=== PATIENT | female | born 1985 | race Caucasian/White ===

== ENCOUNTER 2017-05-15 20:00 | Emergency (ER) | payer OTHER ==
[2017-05-15 20:07] VITALS: BP 138/74; PULSE 84; TEMP 97.8; BMI 27.4
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
[2017-05-15] MEDS ORDERED: ACETAMINOPHEN 325 MG TABLET (FP) PO ONE (21:04)
[2017-05-15] MEDS ORDERED: ALBUTEROL SO4 2.5/IPRATROPIUM 0.5 INH SOL 3 ML VIAL.NEB. NEB ONE ×2 (21:04→21:44)
[2017-05-15 21:19] LABS: URINE APPEARANCE CLEAR; URINE BILIRUBIN 1+ (NEGATIVE); URINE BLOOD NEGATIVE (NEGATIVE); URINE COLOR YELLOW; URINE GLUCOSE (UA) NEGATIVE (NEGATIVE); URINE KETONE 1+ (NEGATIVE); URINE LEUK ESTERASE NEGATIVE (NEGATIVE); URINE NITRITE NEGATIVE (NEGATIVE); URINE PROTEIN 1+ (NEGATIVE)
[2017-05-15 21:29] LABS: URINE RBC 3/HPF /hpf (0-3); URINE WBC 3/HPF /hpf (3-5)
[2017-05-15 21:30] LABS: CALCIUM OXALATE CRYSTALS MANY /hpf (NONE SEEN); URINE HYALINE CAST 8/HPF /lpf; URINE MUCUS MANY
[2017-05-15] MEDS ORDERED: ACETAMINOPHEN 325 MG TABLET (FP) ONE (22:12)
== END 2017-05-16 00:08 | disposition home or self-care (01) ==
LOC: JER 20:00
PROC: 3E0F7GC Introduction of Other Therapeutic Substance into Respiratory Tract, Via Natural or Artificial Opening (ICD-10-PCS; principal; 2017-05-15)
PROC: 3E0F7GC Introduction of Other Therapeutic Substance into Respiratory Tract, Via Natural or Artificial Opening (ICD-10-PCS; 2017-05-15)
DX: S90.02XA Contusion of left ankle, initial encounter (principal); V03.10XA Pedestrian on foot injured in collision with car, pick-up truck or van in traffic accident, initial encounter; Y92.414 Local residential or business street as the place of occurrence of the external cause; Y93.01 Activity, walking, marching and hiking; J45.909 Unspecified asthma, uncomplicated; F17.210 Nicotine dependence, cigarettes, uncomplicated
CPT/HCPCS: 72100-TC; 73590-TC-LT; 73610-TC-LT; 81003; 81015; 84703; 99282-25